=== PATIENT | male | born 1985 | race American Indian/Alaskan Native ===

== ENCOUNTER 2021-06-09 21:29 | Emergency (ER) | payer OTHER | END 2021-06-09 23:39 | disposition home or self-care (01) | LOC: DL.ED 21:29 | DX: S90.31XA Contusion of right foot, initial encounter (principal); Z72.0 Tobacco use; W22.09XA Striking against other stationary object, initial encounter; Y93.64 Activity, baseball | CPT/HCPCS: 73610-RT; 99283; 99283-25 ==